=== PATIENT | female | born 1980 | race Caucasian/White ===

== ENCOUNTER 2017-01-18 18:56 | Outpatient (CLI) | payer BC ==
[~2017-01-18] VITALS: Ht 162.6 cm; Wt 87.5 kg
[~2017-01-18 18:56] MED LIST: HYDR-3240 PO; IBUP-1222 PO; PREN1TAB60 PO
[2017-01-18 19:34] VITALS: BP 112/72
== END 2017-01-18 22:15 | disposition home or self-care (01) ==
LOC: LDOP 18:56
PROVIDERS: ATTEND Obstetrics & Gynecology
DX: O09.523 Supervision of elderly multigravida, third trimester (principal); O26.893 Other specified pregnancy related conditions, third trimester; R10.9 Unspecified abdominal pain; Z3A.37 37 weeks gestation of pregnancy
CPT/HCPCS: 59025; 99211; G0463

== ENCOUNTER 2017-01-21 09:58 | Inpatient (IN) | payer BC ==
[~2017-01-21] VITALS: Ht 162.6 cm; Wt 87.7 kg
[2017-01-21] MEDS: LACTATED RINGERS 1,000 ML IV SCH ×2 (10:12→18:12)
[2017-01-21] MEDS ORDERED: OXYTOCIN 30U/ 0.9% NaCL 500ML 500 ML IV PRN (10:12)
[2017-01-21] MEDS ORDERED: OXYTOCIN 30U/ 0.9% NaCL 500ML 500 ML IV ONE (10:12)
[2017-01-21] MEDS: D5%-LACTATED RINGERS 1,000 ML IV SCH ×2 (10:12→18:12)
[2017-01-21 10:14] VITALS: BP 120/73
[2017-01-21] MEDS ORDERED: FENTANYL PF 100 MCG/2ML IVPush PRN (10:30)
[2017-01-21] MEDS ORDERED: FENTANYL PF 100 MCG/2ML IV PRN (10:30)
[2017-01-21] MEDS ORDERED: TERBUTALINE 1 MG/ML, 1ML IVPush PRN (10:30)
[2017-01-21] MEDS ORDERED: ONDANSETRON 2MG/ML, 2ML IVPush PRN (10:30)
[2017-01-21] MEDS ORDERED: NEWBORN KIT ONE (10:36)
[2017-01-21] MEDS ORDERED: LIDOCAINE 1%, 20ML ONE (10:36)
[2017-01-21] MEDS ORDERED: MISOPROSTOL 200 MCG TABLET ONE (10:37)
[2017-01-21] MEDS ORDERED: OXYTOCIN 30U/ 0.9% NaCL 500ML 500 ML ONE ×2 (10:37→18:47)
[2017-01-21 10:58] LABS: HEMATOCRIT 39.1 % (34.6-47.8); HEMOGLOBIN 13.3 g/dL (11.7-16.4); WHITE BLOOD COUNT 7.8 x10^3/uL (3.4-10)
[2017-01-21] MEDS: LACTATED RINGERS 1,000 ML IVBOLUS PRN ×2 (14:00→16:00)
[2017-01-21] MEDS ORDERED: SODIUM CITRATE/CITRIC ACID 30 ML UDC ONE (14:14)
[2017-01-21] MEDS ORDERED: ONDANSETRON 2MG/ML, 2ML ONE (14:14)
[2017-01-21] MEDS ORDERED: SODIUM CITRATE/CITRIC ACID 30 ML UDC PO ONE (14:30)
[2017-01-21] MEDS ORDERED: LIDOCAINE/MPF 2%-EPI 1:200K, 20 ML ONE (14:42)
[2017-01-21] MEDS ORDERED: FENTANYL/BUPIV./NS/PF 250 ML EPIDCONT ONE (14:42)
[2017-01-21] MEDS ORDERED: FENTANYL/BUPIV./NS/PF 250 ML EPIDCONT SCH (15:27)
[2017-01-21] MEDS ORDERED: LACTATED RINGERS 1,000 ML IV SCH (15:27)
[2017-01-21] MEDS ORDERED: EPHEDRINE 50 MG/ML, 1ML IVPush PRN (15:30)
[2017-01-21] MEDS ORDERED: NALOXONE 0.4 MG/ML, 1ML IVPush PRN (15:30)
[2017-01-21] MEDS ORDERED: EPHEDRINE 50 MG/ML, 1ML ONE (15:52)
[2017-01-21] MEDS ORDERED: OXYTOCIN 30U/ 0.9% NaCL 500ML 500 ML IV SCH (19:07)
[2017-01-21] MEDS ORDERED: IBUPROFEN 600 MG TABLET ONE (19:12)
[2017-01-21] MEDS: IBUPROFEN 600 MG TABLET PO PRN (19:13)
[2017-01-21] MEDS ORDERED: MISOPROSTOL 200 MCG TABLET PR PRN (19:30)
[2017-01-21] MEDS ORDERED: ONDANSETRON 2MG/ML, 2ML IV PRN (19:30)
[2017-01-21] MEDS ORDERED: OXYcodone/APAP 5/325MG TABLET PO PRN ×2 (19:30)
[2017-01-21] MEDS ORDERED: METHYLERGONOVINE 0.2 MG/ML IM PRN (19:30)
[2017-01-21] MEDS ORDERED: CARBOPROST TROMETHAMINE 250 MCG/ML, 1ML IM PRN (19:30)
[2017-01-21] MEDS ORDERED: BISACODYL 10 MG SUPP PR PRN (19:30)
[2017-01-21] MEDS ORDERED: METOCLOPRAMIDE 5 MG/ML, 2ML IV PRN (19:30)
[2017-01-21] MEDS ORDERED: ACETAMINOPHEN 325 MG TABLET PO PRN (19:30)
[2017-01-21] MEDS ORDERED: DOCUSATE 100 MG CAPSULE PO PRN (19:30)
[2017-01-21 20:30] VITALS: BP 102/69
[2017-01-22] VITALS: BP 110/67
[2017-01-22] MEDS: IBUPROFEN 600 MG TABLET PO PRN ×3 (01:06→13:41)
[2017-01-22 02:36] LABS: HEMATOCRIT 33.3 % (34.6-47.8); HEMOGLOBIN 11.4 g/dL (11.7-16.4); WHITE BLOOD COUNT 11.5 x10^3/uL (3.4-10)
[2017-01-22 04:00] VITALS: BP 112/62
[2017-01-22] MEDS ORDERED: PRENATAL VIT/IRON/FA 1 EACH TABLET ONE (07:21)
[2017-01-22 07:30] VITALS: BP 111/70
[2017-01-22] MEDS ORDERED: PRENATAL VIT/IRON/FA 1 EACH TABLET PO SCH (09:00)
[2017-01-22 13:00] VITALS: BP 118/71
== END 2017-01-22 17:30 | disposition home or self-care (01) | DRG 775 ==
LOC: LDOP 09:58 → LDIP 10:18 → 2NW 20:20
PROVIDERS: ADMIT Obstetrics & Gynecology; ATTEND Obstetrics & Gynecology
PROC: 10E0XZZ Delivery of Products of Conception, External Approach (ICD-10-PCS; principal; 2017-01-21)
PROC: 0KQM0ZZ Repair Perineum Muscle, Open Approach (ICD-10-PCS; 2017-01-21)
PROC: 3E0R3BZ Introduction of Anesthetic Agent into Spinal Canal, Percutaneous Approach (ICD-10-PCS; 2017-01-21)
PROC: 00HU33Z Insertion of Infusion Device into Spinal Canal, Percutaneous Approach (ICD-10-PCS; 2017-01-21)
PROC: 10E0XZZ Delivery of Products of Conception, External Approach (ICD-10-PCS; 2017-01-21)
PROC: 3E0P3VZ Introduction of Hormone into Female Reproductive, Percutaneous Approach (ICD-10-PCS; 2017-01-21)
DX: O70.1 Second degree perineal laceration during delivery (principal); Z37.0 Single live birth; K21.9 Gastro-esophageal reflux disease without esophagitis; O99.62 Diseases of the digestive system complicating childbirth; Z3A.38 38 weeks gestation of pregnancy
CPT/HCPCS: 36415; 85025; 86850; 86900; J2405; J2590; J7120